=== PATIENT | male | born 1955 | race Caucasian/White ===

== ENCOUNTER 2023-08-16 14:18 | Outpatient (RCR) | payer MEDICARE, OTHER, SELFPAY ==
[2023-08-02] MEDS: [UNRECOGNIZED DRUG - OTHER] 100 MG IV (14:48)
[2023-08-02 15:03] VITALS: BP 188/83
[2023-08-02 15:30] LABS: % Basophils 0.4 % (0-2); % Eosinophils 0.5 % (0-6); % Immature Granulocytes 1.3 % (0-0.5); % Lymphocytes 10.2 % (20.5-51.1); % Monocytes 8.4 % (1.7-9.3); % Neutrophils 79.2 % (42.2-75.2); Absolute Eosinophils 0.1 10^3/uL (0-0.7); Absolute Immature Granulocytes 0.1 10^3/uL (0-0.05); Absolute Monocytes 0.8 10^3/uL (0.1-0.6); Absolute Neutrophils 7.3 10^3/uL (1.4-6.5); Hematocrit 39.3 % (39.0-52.0); Hemoglobin 13.8 g/dL (13.0-18.0); Mean Corp Hgb Conc. 35.1 g/dL (33.0-37.0); Mean Corpuscular Hgb 31.3 pg (27.0-31.0); Mean Corpuscular Volume 89.1 fL (80.0-94.0); Mean Platelet Volume 10.1 fL (7.4-10.4); Platelet Count 150 10^3/uL (130-400); Red Blood Cell Count 4.41 10^6/uL (4.70-6.10); White Blood Cell Count 9.3 10^3/uL (4.8-10.8)
[2023-08-02 16:23] LABS: Blood Urea Nitrogen 23 mg/dl (9-20); Calcium 10.8 mg/dl (8.4-10.2); Carbon Dioxide 23 mmol/L (22-30); Chloride 103 mmol/L (98-107); Glucose 166 mg/dl (70-99); Potassium 4.4 mmol/L (3.5-5.1); Sodium 135 mmol/L (135-145); eGFR > 60.00
[2023-08-16] MEDS: [UNRECOGNIZED DRUG - OTHER] 100 MG IV (14:59)
[2023-08-16 15:08] LABS: % Basophils 0.8 % (0-2); % Eosinophils 1.8 % (0-6); % Immature Granulocytes 0.9 % (0-0.5); % Lymphocytes 14.8 % (20.5-51.1); % Monocytes 10.8 % (1.7-9.3); % Neutrophils 70.9 % (42.2-75.2); Absolute Basophils 0.1 10^3/uL (0-0.2); Absolute Eosinophils 0.1 10^3/uL (0-0.7); Absolute Immature Granulocytes 0.1 10^3/uL (0-0.05); Absolute Lymphocytes 1.2 10^3/uL (1.2-3.4); Absolute Monocytes 0.8 10^3/uL (0.1-0.6); Absolute Neutrophils 5.5 10^3/uL (1.4-6.5); Hematocrit 40.6 % (39.0-52.0); Hemoglobin 14.4 g/dL (13.0-18.0); Mean Corp Hgb Conc. 35.5 g/dL (33.0-37.0); Mean Corpuscular Hgb 31.2 pg (27.0-31.0); Mean Corpuscular Volume 87.9 fL (80.0-94.0); Mean Platelet Volume 9.8 fL (7.4-10.4); Platelet Count 154 10^3/uL (130-400); Red Blood Cell Count 4.62 10^6/uL (4.70-6.10); Red Cell Dist. Width 12.9 % (11.5-14.5); White Blood Cell Count 7.8 10^3/uL (4.8-10.8)
[2023-08-16 15:09] VITALS: BP 123/70
[2023-08-16 16:03] LABS: Blood Urea Nitrogen 18 mg/dl (9-20); Carbon Dioxide 24 mmol/L (22-30); Chloride 101 mmol/L (98-107); Glucose 174 mg/dl (70-99); Potassium 4.2 mmol/L (3.5-5.1); Sodium 134 mmol/L (135-145); eGFR > 60.00
== END 2023-08-17 08:23 | disposition home or self-care (01) ==
LOC: OID 14:18
PROVIDERS: ATTENDING PHYSICIAN Internal Medicine Nephrology; FAMILY PHYSICIAN Internal Medicine
DX: Z94.0 Kidney transplant status (principal)
CPT/HCPCS: 36415; 80048; 85025; 96365; J0485

== ENCOUNTER 2023-08-24 22:03 | Observation (INO) | payer MEDICARE, OTHER, SELFPAY ==
[2023-08-24] VITALS (8 sets, daily range): BP systolic 106–178; BP diastolic 62–96
[2023-08-24 14:44] LABS: Glucose - Point of Care 198 mg/dl (70-99)
[2023-08-24 14:55] LABS: % Basophils 0.6 % (0-2); % Eosinophils 0.8 % (0-6); % Immature Granulocytes 1.4 % (0-0.5); % Monocytes 7.3 % (1.7-9.3); % Neutrophils 77.9 % (42.2-75.2); Absolute Basophils 0.1 10^3/uL (0-0.2); Absolute Eosinophils 0.1 10^3/uL (0-0.7); Absolute Immature Granulocytes 0.1 10^3/uL (0-0.05); Absolute Lymphocytes 1.2 10^3/uL (1.2-3.4); Absolute Monocytes 0.7 10^3/uL (0.1-0.6); Absolute Neutrophils 7.8 10^3/uL (1.4-6.5); Hematocrit 43.5 % (39.0-52.0); Hemoglobin 15.8 g/dL (13.0-18.0); Mean Corp Hgb Conc. 36.3 g/dL (33.0-37.0); Mean Corpuscular Hgb 31.3 pg (27.0-31.0); Mean Corpuscular Volume 86.3 fL (80.0-94.0); Mean Platelet Volume 9.6 fL (7.4-10.4); Nucleated Red Blood Cells % 0 % (-); Platelet Count 178 10^3/uL (130-400); Red Blood Cell Count 5.04 10^6/uL (4.70-6.10); Red Cell Dist. Width 13.2 % (11.5-14.5); White Blood Cell Count 10.1 10^3/uL (4.8-10.8)
[2023-08-24 15:07] LABS: ALT (SGPT) 67 U/L (0-50); AST (SGOT) 60 U/L (17-59); Albumin 4.1 g/dl (3.5-5.0); Alkaline Phosphatase 153 U/L (38-126); Blood Urea Nitrogen 16 mg/dl (9-20); Calcium 11.1 mg/dl (8.4-10.2); Carbon Dioxide 25 mmol/L (22-30); Chloride 102 mmol/L (98-107); Glucose 206 mg/dl (70-99); Potassium 4.6 mmol/L (3.5-5.1); Sodium 132 mmol/L (135-145); Total Bilirubin 0.9 mg/dl (0.2-1.3); Total Protein 6.6 g/dl (6.3-8.2); eGFR > 60.00
--- NOTE | 2023-08-24 15:28 | ED.GENMED ---
History of Present Illness
General
Chief Complaint: Weakness
Source: patient
Exam Limitations: none
Time Seen by Provider: 08/24/23 15:08
Nursing documentation reviewed up to this point in time: agreed with
Travel History
Have you had any contact with someone who has COVID-19?: No
Do you have any symptoms of coronavirus? Fever > 100 degrees, chills, cough, shortness of breath, sore throat, loss of taste or smell, muscle aches, or headache?: No
History of Present Illness
History of Present Illness:
68-year-old male with past medical history of cerebral amyloid angiopathy, renal failure with renal transplant 2021, CVA 2019, CAD aortic stenosis status post TAVR, seizure disorder hypertension diabetes hyperlipidemia A-fib on chronic
immunosuppressants presents to the ER for evaluation of weakness. reports for the past several days patient has been very weak having difficulty walking despite using his walker. He is hunched over and she reports it seems like his legs
cannot hold him up.
Patient was recently here at June 08 and transferred to [facility] where his renal transplant was performed June 15. Patient tacrolimus was discontinued and patient was started on CellCept at that time.
reports patient has not had any fever but she has noticed that his urine has been very foul-smelling recently.
She reports patient seems to be eating and drinking well.
Past History
Past History
ED Past Medical History: CHF, CVA (Left upper cut loss), HTN, Hypercholesterolemia, NIDDM, Renal failure (Hemodialysis), Seizures and Other (Obstructive sleep apnea, MS, Diverticulitis, Blind ( blurred vision, sees shadows), )
ED Past Surgical History: Cardiac (TAVR- February 2020), Cholecystectomy and Urological (Renal transplant)
Patient has exhibited threatening behavior?: No
PSI?: No
Social History
Tobacco: Former smoker
Alcohol: Occasional
Personal:
Living: with family
Review of Systems
Review of Systems
Allergies reviewed?: Yes
Other source history: family
All Other Systems: ROS reviewed and negative except as documented in HPI and ROS
Constitutional: Reports other (weakness )
EENT: Reports no symptoms
Respiratory: Reports no symptoms; Denies cough or trouble breathing
Cardiac: Reports no symptoms; Denies chest pain, diaphoresis, palpitations or syncope
ABD/GI: Reports no symptoms
: Reports other (foul smelling urine as per )
Musculoskeletal: Reports no symptoms
Skin: Reports no symptoms
Neurological: Reports no symptoms
Psychiatric: Reports no symptoms
Phy Exam
General Physical Exam
General Presentation: no apparent distress
General age: appears stated age
General Skin: warm and dry
General Habitus: elderly
General Mental: alert
General Hydration: dry mucous membranes
Neurological Exam
Neurological Exam: alert, no motor deficits, no sensory deficits and speech normal
NIH Stroke Score
Level of Consciousness: 0 - Alert
LOC questions: 0-Answers both correctly
LOC Commands: 0-Performs both correctly
Best Gaze: 0-Normal
Visual Ramos: 0=Normal, no visual loss
Facial palsy: 0=Normal, symmetrical
Motor - Right Arm: 0=No drift 10 seconds
Motor - Left Arm: 0=No drift 10 seconds
Motor - Right Le-No drift 5 seconds
Motor - Left Le-No drift 5 seconds
Limb Ataxia: 0-Absent
Sensation: 0-Normal
Best Language: 0-No aphasia
Dysarthria: 0-Normal
Extinction and Inattention: 0-No abnormality
Total Score:: 0
[place] Coma Scale
Eye Opening: Spontaneous
Verbal Response: Oriented
Motor Response: Obeys Commands
GCS Total Score: 15
Musculoskeletal Exam
Musculoskeletal Exam: full ROM
Skin Exam
Skin Exam: normal color and warm/dry
Psychiatric Exam
Psychiatric Exam: normal mood/affect
Course
Orders/Labs/Results
Orders:
Orders
08/24/23 14:42
Comprehensive Metabolic Panel Urgent
08/24/23 14:43
Complete Blood Count/With Diff Urgent
08/24/23 15:32
0.9% Sodium Chloride 250 ml [Nss] 250 ml IV BOLUS
08/24/23 15:33
COVID-19 Antigen Urgent
Source: Nasal Swab
Influenza A+B Rapid Molecular Urgent
ЕЛЕНА Source: Nasal Swab
Specimen Description:
08/24/23 17:10
UA Reflex to Culture [Urinalysis Reflex To Culture] Urgent
Date Specimen was Collected: 08/24/23
Time Specimen was Collected: 16:14
Urine Microscopic Reflex Cult Urgent
08/24/23 18:45
CT Head W/o Iv Contrast Urgent
Comment:
Reason For Exam: weakness, unable to walk
08/24/23 19:54
Electrocardiogram (*1) Stat
Reason for Study: Other
Other Reason for Exam: chest pain
EKG- Treatment ONCE
08/24/23 21:41
Admit/Transfer Patient As Directed
Co-Sign Provider:
Level of Care: Observation services
Assign to:: Telemetry
Physician / Group: Arturo
Diagnosis: RLE Weakness
Reason for Telemetry: CVA/TIA
Date to Stop Telemetry: 08/27/23
Time to Stop Telemetry: 11:00
08/24/23 21:42
Code Status As Directed
Resuscitation Status: Full Code
08/25/23 00:07
Acetaminophen [Tylenol] 650 mg PO Q4HPRN PRN
Atorvastatin [Lipitor] 40 mg PO HS
Dextrose 50%-Water [Dextrose 50% Syringe] 12.5 grams IV [id number] PRN
Glucagon [GlucaGen] 1 mg IM PRN PRN
NIFEdipine EXTENDED RELEASE [Procardia Xl (Extended Release)] 60 mg PO Q12H
Spironolactone [Aldactone Suspension] 50 mg PO Q12H
Tamsulosin [Flomax] 0.4 mg PO HS
clobazam 20 mg PO HS
cycloSPORINE [SandIMMUNE] 75 mg PO Q12H
insulin glargine [Lantus Solostar U-100 Insulin] 20 unit SC HS
quetiapine 50 mg PO HS
08/25/23 00:07
TSH Reflex To Free T4 Routine
Activity As Directed
Activity Level: Ambulate
With Assistance
Bedside Glucose Monitoring As Directed
Frequency: AC&HS
Comment: Change to q6h if pt on TPN, tube feeding or not eating
Bladder Scan As Directed
Follow Bladder Retention/Intermittent Cath Algorithm?: Yes
PRN if no void in __ hours: 6
Frequency: Per Retention Algorithm
If Bladder Scan Result >: 400
then:: Straight cath
EKG with chest pain [ECG as needed] As Directed
ECG as needed for:: Chest Pain
I/O [Intake/ Output] As Directed
Frequency: Per unit guidelines
Neurological Checks As Directed
Frequency: q4h
Orthostatic Vital Signs As Directed
Orthostatic VS Frequency: BID
Pneumatic Compression Sleeves As Directed
Type: Knee high
Straight Cath As Directed
Frequency: Per Retention Algorithm
Additional Instructions: straight cath as needed per acute urinary retention algorithm for 24 hrs
Additional Instructions: for bladder scan greater than 400 mL
Vital Signs As Directed
Frequency: Per unit guidelines
Weight As Directed
Frequency: Daily
Oxygen Therapy [O2 Therapy] [RESP] Routine
Titrate/Wean O2 to maintain O2 sat greater than (%): 94
Ot Eval And Treat Routine
PT Consult [Pt Eval And Treat] Routine
Activity Level: Ambulate
With Assistance
DX Deep Vein Thrombosis Video Routine
08/25/23 Breakfast
2000 calorie (17 carb) Diabetic
Basic Metabolic Panel IN AM
Complete Blood Count/No Diff IN AM
Glycohemoglobin (HgbA1c) IN AM
LFT [Hrjow-Bcna-Pptmgnm] IN AM
08/25/23 07:30
Insulin Aspart Corrective Low [Novolog Flexpen-Low Resistance] See Protocol SC AC
insulin lispro 8 unit SC AC
08/25/23 08:00
Aspirin Low Dose EC [Aspir Low (Enteric Coated)] 81 mg PO DAILY
Carvedilol [Coreg] 12.5 mg PO BID
Escitalopram Oxalate [Lexapro] 15 mg PO DAILY
FOLic ACID [Folvite] 1 mg PO DAILY
Famotidine [Pepcid] 20 mg PO DAILY
Finasteride [Proscar] 5 mg PO DAILY
Prednisone [Deltasone] 5 mg PO DAILY
08/25/23 12:00
Quetiapine Fumarate [Seroquel] 25 mg PO NOON
08/27/23 11:00
DC Protocol for Telemetry ONCE
Abnormal Lab Results
08/24/23 08/24/23 08/24/23
14:42 14:43 14:44
MCH 31.3 H pg
(27.0-31.0)
Abs Immat Gran (auto) 0.1 H 10^3/uL
(0-0.05)
Absolute Neuts (auto) 7.8 H 10^3/uL
(1.4-6.5)
Absolute Monos (auto) 0.7 H 10^3/uL
(0.1-0.6)
Immature Gran % 1.4 H %
(0-0.5)
Neutrophils % 77.9 H %
(42.2-75.2)
Lymphocytes % 12.0 L %
(20.5-51.1)
Sodium 132 L mmol/L
(135-145)
Glucose 206 H mg/dl
(70-99)
Calcium 11.1 H mg/dl
(8.4-10.2)
AST 60 H U/L
(17-59)
ALT 67 H U/L
(0-50)
Alkaline Phosphatase 153 H U/L
(38-126)
Ur Occult Blood Reflex
Urine Albumin (Reflex)
POC Glucose 198 H mg/dl
(70-99)
08/24/23
17:10
MCH
Abs Immat Gran (auto)
Absolute Neuts (auto)
Absolute Monos (auto)
Immature Gran %
Neutrophils %
Lymphocytes %
Sodium
Glucose
Calcium
AST
ALT
Alkaline Phosphatase
Ur Occult Blood Reflex Trace A
(Negative)
Urine Albumin (Reflex) 2+ A
(Neg - Trace)
POC Glucose
08/24/23 14:43
08/24/23 14:42
Vital Signs
Initial and Last Documented VS:
Initial Vital Signs
Temp Pulse Resp BP Pulse Ox
97.8 F 55 18 106/62 100
08/24/23 14:28 08/24/23 14:28 08/24/23 14:28 08/24/23 14:28 08/24/23 14:28
Last Documented Vital Signs
Temp Pulse Resp BP Pulse Ox
98.1 F 58 18 173/80 98
08/25/23 00:07 08/25/23 00:07 08/25/23 00:07 08/25/23 00:07 08/25/23 00:07
Light Rail Operator consulted with Physician
Light Rail Operator consulted with physician?: Yes
Name of Physician Consulted: [place]
MDM/Problems Addressed
Differential Diagnosis Includes:
Not limited to infection dehydration weakness related to chronic cerebral amyloid angiopathy
MDM/Problems Addressed:
Patient is a 68-year-old male with significant history as documented above presents for worsening weakness. reports patient can barely walk with a walker. Patient notes to feeling generally weak no neurodeficits on exam. reports urine
was very foul-smelling however no obvious UTI. Patient is afebrile normal white count, glucose mildly elevated LFTs minimally elevated patient sent by ED physician CT head ordered and negative, will require admission for worsening weakness though
no focal neurodeficits
Chronic conditions affecting care:
For cerebral amyloid angiopathy renal transplant, TAVR
*Radiology
Radiology exam reviewed: radiology read reviewed
*Pulse Oximetry
Patient hypoxic: no
*Critical Care Note
Total Time (30-74mins, 75-104mins- exclusive of procedures): Not Applicable
ED Attending Note
-
Portions of this chart may have been created with voice recognition software.� Occasional wrong word or��sound alike� substitutions may have occurred due to the inherent limitations of voice recognition software.
Discharge Plan
Departure
Patient Disposition: Admit
Date of Disposition: 08/24/23
Time of Disposition: 19:55
Admit to: Med/Surg
Admit to doctor: hositalist
Presentation/result/management discussed w/ accepting MD/DO: Hospitalist
Patient with high blood pressure during this ER visit?: Yes
Condition: Fair
Covid-19: Not Applicable
Discharge Problem:
Weakness, generalized weakness
Interventions
Interventions:
*Risk Screen - Suicide Last Done: 08/24/23 14:31
*General Assessment Last Done: 08/24/23 14:31
*Neglect/Abuse Screening Last Done: 08/24/23 14:31
ED- Fall Risk Assessment Last Done: 08/25/23 00:09
*ED COVID-19 Vaccine History Last Done: 08/24/23 14:32
*Nursing Disposition Last Done: 08/25/23 00:09
ED- Neurological Assessment Last Done: 08/24/23 15:30
Discharge Date and Time
Discharge Date/Time: 08/25/23 00:09
[2023-08-24 16:01] LABS: COVID-19 Antigen Negative (Negative)
[2023-08-24] MEDS: NSS 250 IV (16:18)
[2023-08-24 17:22] LABS: Urine Albumin 2+ (Neg - Trace); Urine Bilirubin Negative (Negative); Urine Character Clear (Clear); Urine Color Yellow; Urine Glucose Negative (Negative); Urine Ketone Negative (Negative); Urine Leukocyte Negative (Negative); Urine Nitrite Negative (Negative); Urine Occult Blood Trace (Negative); Urine Specific Gravity 1.015 (<1.030); Urine Urobilinogen Negative (Neg - 1+)
[2023-08-24 17:28] LABS: Urine Red Blood Cell 0-2 /HPF (0-2); Urine Squamous Cell 0-2 /LPF (Few); Urine White Cell 0-2 /HPF (0-5)
--- NOTE | 2023-08-24 21:46 | HPS.HSE ---
Family Physician
-
Family Physician: PHYSICIAN PRIVATE
Chief Complaint
-
Weakness
History of Present Illness
Patient is a 68y M with PMH significant for ESRD s/p renal transplant, multiple prior CVAs, vascular dementia, seizure disorder and DM-II who presents to ED complaining of right leg weakness. History obtained from patient and his at the
bedside. Patient is s/p recent prolonged hospitalization lasting about 4 months according to his . This was reportedly for weakness, mood disorder / agitation, etc. He was discharged to SNF / rehab and only returned home about 3 weeks ago.
One week ago, patient ws walking when his R leg 'stopped doing what I wanted'. He had a fall onto his L side at that time. He and deny any significant injury, head impact, LOC, etc.
Yesterday he had PT at home and did very well with no apparent issues / limitations. This AM, he again noted weakness or clumsiness or 'stiffness' of the R leg. He had difficulty walking as the R foot felt 'stuck'.
Patient presented to the ED for further evaluation and treatment.
He has no headache. No new vision changes (has chronic visual field deficits from prior CVA). No RUE symptoms including weakness or ataxia.
Patient is in the process of being evaluated for possible component of Parkinson's as an outpatient.
Medical History
Past Medical History
Past Medical History: Reports Other
Additional Past Medical History:
ASCVD / CVA (multiple)
Aortic Stenosis
CKD s/p Renal Transplant
DM-II
Hypertension
Seizure Disorder
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
Thrombocytopenia
Intracranial Hemorrhage (November 2022)
BPH
Primary Hyperparathyroidism
Past Surgical History: Reports Other
Additional Past Surgical History:
RUE AVF
Cholecystectomy
TAVR
Renal Transplant (December 2021)
Social History
Tobacco: Former Smoker (Quit smoking 20 years ago.)
Alcohol: None
Drug: None
Personal:
Living: With Family
Family History
Family History: Diabetes
Allergies / Home Medications
Allergies reflects when Allergies were last updated in [facility].
Home Medications with original date entered in [facility]
Allergy/Medication List:
Allergies
Allergy/AdvReac Type Severity Reaction Status Date / Time
heparin Allergy Unknown Verified 08/24/23 14:28
levetiracetam [From Kera] Allergy change in Verified 08/24/23 14:28
mental
status.
Home Medications
tamsulosin 0.4 mg capsule 0.4 mg PO HS Urinary Issue 06/22/21
atorvastatin 40 mg tablet (Lipitor) 40 mg PO HS High cholesterol 06/23/21
carvedilol 12.5 mg tablet 12.5 mg PO BID Heart Disease/Condition 12/30/22
famotidine 20 mg tablet 20 mg PO DAILY Gastrointestinal Issue 12/30/22
finasteride 5 mg tablet 5 mg PO DAILY Urinary Issue 12/30/22
prednisone 5 mg tablet 5 mg PO DAILY Anti-Inflammatory 12/30/22
aspirin 81 mg tablet,delayed release 81 mg PO DAILY #0 tabs 01/05/23
insulin glargine 100 unit/mL (3 mL) subcutaneous pen (Lantus Solostar U-100 Insulin) 20 unit SC HS 06/08/23
insulin lispro 100 unit/mL subcutaneous pen 8 unit SC AC 06/08/23
quetiapine 25 mg tablet (Seroquel) 25 mg PO NOON 06/08/23
benzonatate 100 mg capsule 100 mg PO Q8H PRN cough 08/24/23
clobazam 20 mg tablet 20 mg PO HS 08/24/23
cyclosporine modified 25 mg capsule 75 mg PO Q12H 08/24/23
escitalopram oxalate 10 mg tablet 10 mg PO DAILY 08/24/23
escitalopram oxalate 5 mg tablet 5 mg PO DAILY 08/24/23
folic acid 1 mg tablet 1 mg PO DAILY 08/24/23
nifedipine 60 mg tablet,extended release 60 mg PO Q12H 08/24/23
quetiapine 50 mg tablet 50 mg PO HS 08/24/23
spironolactone 50 mg tablet (Aldactone) 50 mg PO Q12H 08/24/23
Review of Systems
-
History Source: Patient
A 12 point ROS was completed and negative except as noted: Yes
Constitutional: Reports Fatigue; Denies Fever or Chills
EENT: Denies Sore Throat
Respiratory: Denies Cough or Trouble Breathing
Cardiac: Denies Chest Pain or Palpitations
Abdomen/GI: Denies Abdominal Pain, Nausea, Vomiting or Diarrhea
: Denies Dysuria or Frequency
Musculoskeletal: Denies Joint Pain or Edema
Neurological: Reports Weakness; Denies Dizzy, Headache or Numbness
Psych: Reports Anxiety, Dementia and Other ('Sundowning'); Denies Depression
Physical Exam
Vital Signs
Vital Signs
Temp Pulse Resp BP Pulse Ox
97.9 F 56 14 153/96 99
08/24/23 17:12 08/24/23 21:15 08/24/23 21:15 08/24/23 21:00 08/24/23 21:15
Physical Exam
General: Other (68y M with flat affect in no acute distress.)
HEENT: Moist mucous membranes and Other (Dysconjugate gaze.)
Respiratory: Clear; No Wheezes, Rales or Rhonchi
Cardiac: S1/S2, Regular Rhythm and Murmur (III/ ALTAGRACIA)
GI: Soft, Non Tender, Non Distended and Normal Bowel Sounds
Musculoskeletal: No Clubbing, No Cyanosis and No Edema
Neuro: Awake, Alert and Other (Gaze deviation / visual field deficit - chronic. No focal weakness or ataxia at present.)
Laboratory Results
-
08/24/23 14:43
08/24/23 14:42
Laboratory Results
Total Bilirubin 0.9 mg/dl (0.2-1.3) 08/24/23 14:42
AST 60 U/L (17-59) H 08/24/23 14:42
ALT 67 U/L (0-50) H 08/24/23 14:42
Alkaline Phosphatase 153 U/L (38-126) H 08/24/23 14:42
Impression/Plan
-
A/P: Patient is a 68y M with PMH significant for ASCVD, multiple prior CVA, dementia and renal transplant status who presents to ED for evaluation of RLE weakness.
RLE Weakness
- Observe overnight for further evaluation and treatment.
- Review of records shows multiple prior similar instances with weakness in one or both legs.
- and patient give interesting description of feeling 'frozen' or 'stuck'.
- Outpatient Parkinson's work-up has been initiated.
- Monitor overnight for any new changes.
- PT / OT evaluations in the AM.
- Neuro eval for any additional recommendations.
- CT imaging in the ED with chronic changes, but no acute abnormality.
ASCVD
- Doubt new / acute CVA given history or prior symptoms and no current RLE weakness or ataxia.
- Suspect more chronic / atypical weakness due to his multiple other issues, prior strokes, +/- Parkinsonism, etc.
- Continue current med regimen.
- Monitor for any changes in neurologic status.
DM-II
- Stable. Continue basal : bolus insulin.
- Follow glucose and cover with SSI as needed.
- Update A1C.
Vascular Dementia with Behavioral Disturbance
- Stable. Continue current med regimen including quetiapine.
- Follow for any changes in mood.
Seizure Disorder
- No recent seizure activity - last in 03/2023 per .
- Continue clobazam.
Renal Transplant Status
- Stable. Renal function is normal / at baseline.
- Continue current med regimen and follow for changes.
Benign Hypertension
- Stable. Continue multidrug regimen and adjust as needed for adequate control.
DVT Prophylaxis: SCDs
Code Status: Full
[2023-08-25] VITALS (8 sets, daily range): BP systolic 104–173; BP diastolic 63–88; PULSE 58–69; O2SAT 98–100; BMI 23.0
[2023-08-25 00:23] LABS: Glucose - Point of Care 277 mg/dl (70-99)
[2023-08-25] MEDS: FLOMAX 0.400000000000000022 MG PO (01:04)
[2023-08-25] MEDS: SEROQUEL 50 MG PO (01:04)
[2023-08-25] MEDS: LIPITOR 40 MG PO (01:05)
[2023-08-25] MEDS: PROCARDIA XL (EXTENDED RELEASE) 60 MG PO ×2 (01:07→10:31)
[2023-08-25] MEDS: SandIMMUNE 75 MG PO ×2 (01:20→10:30)
[2023-08-25] MEDS: ALDACTONE 50 MG PO ×2 (01:20→10:30)
[2023-08-25] MEDS: ONFI 20 MG PO (01:20)
[2023-08-25] MEDS: LANTUS 0.200000000000000011 UNITS SC (01:21)
[2023-08-25 07:36] LABS: Hematocrit 40.5 % (39.0-52.0); Hemoglobin 14.3 g/dL (13.0-18.0); Mean Corp Hgb Conc. 35.3 g/dL (33.0-37.0); Mean Corpuscular Volume 87.7 fL (80.0-94.0); Mean Platelet Volume 9.9 fL (7.4-10.4); Platelet Count 157 10^3/uL (130-400); Red Blood Cell Count 4.62 10^6/uL (4.70-6.10); White Blood Cell Count 7.7 10^3/uL (4.8-10.8)
[2023-08-25 07:55] LABS: Glucose - Point of Care 177 mg/dl (70-99)
[2023-08-25] MEDS: PROSCAR 5 MG PO (08:01)
[2023-08-25] MEDS: ASPIR LOW (ENTERIC COATED) 81 MG PO (08:01)
[2023-08-25] MEDS: LEXAPRO 15 MG PO (08:02)
[2023-08-25] MEDS: COREG 12.5 MG PO (08:02)
[2023-08-25] MEDS: DELTASONE 5 MG PO (08:02)
[2023-08-25] MEDS: FOLVITE 1 MG PO (08:02)
[2023-08-25] MEDS: PEPCID 20 MG PO (08:03)
[2023-08-25] MEDS: NOVOLOG FLEXPEN 8 UNITS SC ×3 (08:03→17:17)
[2023-08-25] MEDS: NOVOLOG FLEXPEN-LOW RESISTANCE 1 UNITS SC ×2 (08:03→17:17)
[2023-08-25 08:17] LABS: ALT (SGPT) 64 U/L (0-50); AST (SGOT) 50 U/L (17-59); Albumin 3.4 g/dl (3.5-5.0); Alkaline Phosphatase 152 U/L (38-126); Blood Urea Nitrogen 19 mg/dl (9-20); Calcium 10.6 mg/dl (8.4-10.2); Carbon Dioxide 26 mmol/L (22-30); Chloride 105 mmol/L (98-107); Direct Bilirubin 0.6 mg/dl (0.0-0.4); Estimated Creatinine Clearance 98 ml/min; Glucose 212 mg/dl (70-99); Potassium 4.1 mmol/L (3.5-5.1); Sodium 131 mmol/L (135-145); Total Bilirubin 0.6 mg/dl (0.2-1.3); Total Protein 5.7 g/dl (6.3-8.2); eGFR > 60.00
[2023-08-25 08:33] LABS: TSH Reflex To Free T4 1.28 uIU/ml (0.47-4.68)
[2023-08-25 11:49] LABS: Glucose - Point of Care 147 mg/dl (70-99)
[2023-08-25] MEDS: NOVOLOG FLEXPEN-LOW RESISTANCE SC (12:00)
[2023-08-25] MEDS: SEROQUEL 25 MG PO (12:26)
--- NOTE | 2023-08-25 12:53 | CON.NEURO4 ---
Consultation - Neurology 4
-
CONSULTING PHYSICIAN: Ralf Parish
REFERRING PHYSICIAN: Hospitalist
DICTATED BY: Ralf Parish
DATE/TIME OF REQUEST: 08/25/23
DATE/TIME OF CONSULTATION: 08/25/23
Reason for Consultation: Weakness, fall
History of Present Illness:
Patient is a 68-year-old male with a past no history of ischemic stroke, epilepsy who presents to hospital with fall and weakness of the legs more so on the right. Patient reports that he thought that this was a stopping of his right leg function
and says that this seems to resolved at this point. He does endorse chronic ambulatory dysfunction sometimes with a feeling of pausing with his gait and hesitated. He denies any tremor. Denies any back pain or change in urinary or bowel function
including incontinence or urinary retention. With the fall he do not have any loss of consciousness or head injury and denies any new pains at this time. He had had a recent discharge after a prolonged hospitalization of around 3 to 4 months,
returned home around 3 to 4 weeks ago.
Past Medical History: Ischemic stroke, vascular dementia with behavioral disturbance, renal transplant, diabetes mellitus, epilepsy
Surgical History: RUE AV fistula, cholecystectomy, renal transplant, TAVR
Family History: Reviewed and non-contributory
Social History: Not working, lives with his , former smoking quitting approximately 20 years ago, no alcohol use
Allergies: Heparin, Levetiracetam
Home Medications:
Review of Symptoms:
Patient denies any fever, headache, chest pain, shortness of breath, GI or symptoms.
�Per the HPI.�All systems are reviewed negative except above.
�- Remove any of these problems that patient may have complained about in the HPI.
�- If patient is unresponsive, intubated or demented, say 'Per the HPI. I am unable to obtain a complete review of systems�because of patient's inability to provide history.'
Physical Exam:
The patient is afebrile, heart sounds S1 and S2 are (regular / irregular), and chest is clear to auscultation bilaterally.
- If not clear, describe.
Neurologic Examination:
Patient awake and alert, limited historian, memory recall to recent events is poor, not much detail to his story, usually speaks in short phrases, comprehension is intact, oriented to person, place, month, year. On cranial nerve assessment,
pupils are 3 mm bilateral, round and reactive to light and accommodation. Left sided homonymous hemianopia. Shoulder abduction hip flexion ankle dorsiflexion and plantarflexion 5/5 bilaterally Extraocular movements are intact. Facial sensations are
intact and bilaterally symmetrical, there is no facial asymmetry. Hearing is intact bilaterally to normal conversation volume. Tongue palate and uvula are midline. Sternocleidomastoid strengths are full bilaterally. Motor strengths are 5/5
bilateral upper and lower extremities on medical research [place] scale. There is no drift or involuntary movement noted. Deep tendon reflexes are 2+ bilateral upper and lower extremities and Babinski is absent bilaterally. Sensations of pain,
touch, temperature and vibration are intact and bilaterally symmetrical. There was no extinction noted on double simultaneous stimulation. Coordination is intact by finger to nose bilaterally.
Neuro Imaging: Previous brain MRI February 2023 with moderate to severe chronic microvascular white matter ischemic disease, chronic right occipital and left cerebellar infarction and chronic lacunar infarcts
Impressions
1. Weakness and ambulatory dysfunction, these symptoms and the fall I feel are most likely due to chronic issues. History of multiple strokes is likely contributing to gait issues and can produce a vascular parkinsonism. No signs on exam of a
new focal deficit concerning for a new ischemic stroke.
2. Epilepsy with unclear seizure types, controlled, without status epilepticus
3. Vascular dementia with behavioral disturbance
4.
Recommendations:
1. Would focus on physical therapy and rebuilding strength and continue to work on gait issues
2. Not going to recommend starting any carbidopa levodopa
3. Not going to recommend further neurologic imaging
4. Continue his home antiseizure medication regimen of Clobazam 20 mg qhs
5. Avoid new sedating medications
Will follow as needed call with questions and concerns
Discussed patient care with: Patient
--- NOTE | 2023-08-25 13:57 | W.PN.HOSP.TC ---
Addendum entered and electronically signed by Clement Lux MD 08/26/23 17:12:
[id number]
Original Note:
Today's Communication/Plan
-
No further recommendations of starting any new medications or imaging at this time
Continue antiseizure medications
Follow-up neurology workup outpatient
Follow PCP
PT or SNF depending on family preference
Assessment / Plan
Assessment / Plan
Physical Exam
General: Other (68y M with flat affect in no acute distress.)
HEENT: Moist mucous membranes and Other (Dysconjugate gaze.)
Respiratory: Clear; No Wheezes, Rales or Rhonchi
Cardiac: S1/S2, Regular Rhythm and Murmur (III/ ALTAGRACIA)
GI: Soft, Non Tender, Non Distended and Normal Bowel Sounds
Musculoskeletal: No Clubbing, No Cyanosis and No Edema
Neuro: Awake, Alert and Other (Gaze deviation / visual field deficit - chronic.� No focal weakness or ataxia at present.)
A/P:� Patient is a 68y M with PMH significant for ASCVD, multiple prior CVA, dementia and renal transplant status who presents to ED for evaluation of RLE weakness.
RLE Weakness, chronic inappearance
�- Observe overnight for further evaluation and treatment.
�- Review of records shows multiple prior similar instances with weakness in one or both legs.
�- and patient give interesting description of feeling 'frozen' or 'stuck'.
�- Outpatient Parkinson's work-up has been initiated.
�- Monitor overnight for any new changes.
�- PT / OT evaluations in the AM.
�- Neuro eval for any additional recommendations.
�- CT imaging in the ED with chronic changes, but no acute abnormality.
-PT
-Neuro not recommending starting any carbidopa levodopa, further neurological imaging
� Continue antiseizure medication clobazam 20 mg nightly
� Avoid new sedating medications
ASCVD
�- Doubt new / acute CVA given history or prior symptoms and no current RLE weakness or ataxia.
�- Suspect more chronic / atypical weakness due to his multiple other issues, prior strokes, +/- Parkinsonism, etc.
�- Continue current med regimen.
�- Monitor for any changes in neurologic status.
DM-II
�- Stable.� Continue basal : bolus insulin.
�- Follow glucose and cover with SSI as needed.
Vascular Dementia with Behavioral Disturbance
�- Stable.� Continue current med regimen including quetiapine.
�- Follow for any changes in mood.
Seizure Disorder
�- No recent seizure activity - last in 03/2023 per .
�- Continue clobazam.
Renal Transplant Status
�- Stable.� Renal function is normal / at baseline.
�- Continue current med regimen and follow for changes.
Benign Hypertension
�- Stable.� Continue multidrug regimen and adjust as needed for adequate control.
DVT Prophylaxis:� SCDs
Code Status:� Full
More than 30 minutes spent in discharge including
Final examination of the patient
Summarizing hospital stay
Instructions for continuing care to all relevant caregivers
Preparation of discharge records, prescriptions, and referral forms
Total time spent (35 in minutes):
Anticipated Discharge: Today
Subjective/Interval History
-
Date of Service: August 25, 2023
No acute events
Objective Data
-
Labs:
Laboratory Results
08/25/23
06:47
WBC 7.7
Hgb 14.3
Hct 40.5
Plt Count 157
Sodium 131 L
Potassium 4.1
Chloride 105
Carbon Dioxide 26
BUN 19
Creatinine 0.7
Glucose 212 H
Calcium 10.6 H
Total Bilirubin 0.6
AST 50
ALT 64 H
Alkaline Phosphatase 152 H
Vital Signs:
Vital Signs
Temp Pulse Resp BP Pulse Ox
97.8 F 60 18 143/88 98
02/29/24 11:00 08/25/23 11:00 08/25/23 11:00 08/25/23 11:00 08/25/23 11:00
I&O
08/24/23 08/25/23 08/26/23
06:59 06:59 06:59
Intake Total 480 / 480
Balance 480 / 480
Review of Systems
-
History Source: Patient
All other systems: Reviewed and negative
Physical Exam
-
General: Well Developed and No Apparent Distress
HEENT: Normocephalic, Atraumatic and Moist Mucous Membranes
Respiratory: Clear to Auscultation
Cardiac: Regular Rhythm and S1/S2; Negative Murmur, Rub or Gallop
GI: Soft, Nontender, Nondistended and Normal Bowel Sounds; Negative Organomegaly
Rectal: Deferred by Provider
Musculoskeletal: No Clubbing, No Cyanosis, No Edema and Other (RUE AVF )
Skin: Negative Rash
Neuro: Awake, Alert and Nonfocal/Grossly Intact
Data Reviewed
-
CT Scan: Image personally visualized and interpreted and Report Reviewed by me
Labs: Labs Reviewed by me
--- NOTE | 2023-08-25 14:15 | W.DS.TRANS ---
DC Summary - [employer]
-
Discharge Instructions:
Discharge Diagnosis/Procedures Weakness and ambulatory dysfunction,
Diet Low Cholesterol,Low Fat,Restrict fluids to 48 oz
Activity As tolerated
Blood Work bmp in 3-5 days with pcp
Instructions:
Stand-Alone Forms:
Changes to Home Medications: No
Discharge Medications:
DC Medications w/original date entered in [employer]
tamsulosin 0.4 mg capsule 0.4 mg PO HS Urinary Issue 06/22/21
atorvastatin 40 mg tablet (Lipitor) 40 mg PO HS High cholesterol 06/23/21
carvedilol 12.5 mg tablet 12.5 mg PO BID Heart Disease/Condition 12/30/22
famotidine 20 mg tablet 20 mg PO DAILY Gastrointestinal Issue 12/30/22
finasteride 5 mg tablet 5 mg PO DAILY Urinary Issue 12/30/22
prednisone 5 mg tablet 5 mg PO DAILY Anti-Inflammatory 12/30/22
aspirin 81 mg tablet,delayed release 81 mg PO DAILY #0 tabs 01/05/23
insulin glargine 100 unit/mL (3 mL) subcutaneous pen (Lantus Solostar U-100 Insulin) 20 unit SC HS Diabetes 06/08/23
insulin lispro 100 unit/mL subcutaneous pen 8 unit SC AC Diabetes 06/08/23
quetiapine 25 mg tablet (Seroquel) 25 mg PO NOON Mental Health/Anxiety 06/08/23
benzonatate 100 mg capsule 100 mg PO Q8H PRN cough 08/24/23
clobazam 20 mg tablet 20 mg PO HS Seizures 08/24/23
cyclosporine modified 25 mg capsule 75 mg PO Q12H Transplant 08/24/23
escitalopram oxalate 10 mg tablet 10 mg PO DAILY Depression 08/24/23
escitalopram oxalate 5 mg tablet 5 mg PO DAILY Depression 08/24/23
folic acid 1 mg tablet 1 mg PO DAILY Supplement 08/24/23
nifedipine 60 mg tablet,extended release 60 mg PO Q12H Blood Pressure 08/24/23
quetiapine 50 mg tablet 50 mg PO HS Mental Health/Anxiety 08/24/23
spironolactone 50 mg tablet (Aldactone) 50 mg PO Q12H Fluid Retention/Swelling 08/24/23
Home Medication Changes
no
Pending Results: No
--- NOTE | 2023-08-25 15:08 | CM ---
Alert awake forgetful at times patient who lives with his Mday who lives in a split home with 5 step to enter and bed and bathroom on first floor. He is assisted in all activities of daily living.Spoke with she requested call back from
. TT wifes number to call.PT OT reviewed with . Kierra reviewed with and patient . Pt did not want to sign Kierra letter. requested [facility] . Referral placed in care port.
[facility] / [facility] history
Pharmacy [facility]
PCP Luis Boyle
PLAN Home with Meena Ure[facility] /[facility] fax [phone]
[2023-08-25 17:05] LABS: Glucose - Point of Care 162 mg/dl (70-99)
== END 2023-08-25 18:53 | disposition home health service (06) ==
LOC: 4 EAST ACU 22:03
PROVIDERS: Nurse Practitioner; Student in an Organized Health Care Education/Training Program; ADMITTING PHYSICIAN Hospitalist; ATTENDING PHYSICIAN Internal Medicine; CONSULT PHYSICIAN Student in an Organized Health Care Education/Training Program; EMERGENCY PHYSICIAN Emergency Medicine
DX: R53.1 Weakness (principal); R26.2 Difficulty in walking, not elsewhere classified; I25.10 Atherosclerotic heart disease of native coronary artery without angina pectoris; I10 Essential (primary) hypertension; E78.5 Hyperlipidemia, unspecified; F01.518 Vascular dementia, unspecified severity, with other behavioral disturbance; G40.909 Epilepsy, unspecified, not intractable, without status epilepticus; I48.91 Unspecified atrial fibrillation; E11.9 Type 2 diabetes mellitus without complications; G47.33 Obstructive sleep apnea (adult) (pediatric); H53.8 Other visual disturbances; Z95.2 Presence of prosthetic heart valve; Z94.0 Kidney transplant status; Z86.73 Personal history of transient ischemic attack (TIA), and cerebral infarction without residual deficits; Z11.52 Encounter for screening for COVID-19; Z87.891 Personal history of nicotine dependence; Z88.8 Allergy status to other drugs, medicaments and biological substances; Z79.82 Long term (current) use of aspirin; Z79.4 Long term (current) use of insulin; Z79.52 Long term (current) use of systemic steroids
CPT/HCPCS: 70450; 80053; 81003; 81015; 82248; 82962; 83036; 84443; 85025; 85027; 87502; 87811; 93005; 97162; 97166; 99285; G0378

== ENCOUNTER 2023-09-13 13:03 | Outpatient (RCR) | payer MEDICARE, OTHER, SELFPAY ==
[2023-09-13 13:55] VITALS: BP 165/69
[2023-09-13] MEDS: [UNRECOGNIZED DRUG - OTHER] 100 MG IV (14:13)
[2023-09-13 14:31] LABS: % Basophils 0.4 % (0-2); % Eosinophils 0.7 % (0-6); % Immature Granulocytes 1.8 % (0-0.5); % Monocytes 11.3 % (1.7-9.3); % Neutrophils 78.8 % (42.2-75.2); Absolute Eosinophils 0.1 10^3/uL (0-0.7); Absolute Immature Granulocytes 0.2 10^3/uL (0-0.05); Absolute Lymphocytes 0.6 10^3/uL (1.2-3.4); Absolute Monocytes 0.9 10^3/uL (0.1-0.6); Absolute Neutrophils 6.6 10^3/uL (1.4-6.5); Hematocrit 39.6 % (39.0-52.0); Hemoglobin 13.8 g/dL (13.0-18.0); Mean Corp Hgb Conc. 34.8 g/dL (33.0-37.0); Mean Platelet Volume 9.8 fL (7.4-10.4); Platelet Count 131 10^3/uL (130-400); Red Blood Cell Count 4.45 10^6/uL (4.70-6.10); Red Cell Dist. Width 12.9 % (11.5-14.5); White Blood Cell Count 8.3 10^3/uL (4.8-10.8)
[2023-09-13 14:59] LABS: Blood Urea Nitrogen 17 mg/dl (9-20); Calcium 10.6 mg/dl (8.4-10.2); Carbon Dioxide 23 mmol/L (22-30); Chloride 100 mmol/L (98-107); Glucose 360 mg/dl (70-99); Potassium 4.6 mmol/L (3.5-5.1); Sodium 130 mmol/L (135-145); eGFR > 60.00
[2023-09-13 15:05] VITALS: BP 139/71
== END 2023-09-14 09:10 | disposition home or self-care (01) ==
LOC: OID 13:03
PROVIDERS: ATTENDING PHYSICIAN Internal Medicine Nephrology; FAMILY PHYSICIAN Internal Medicine
DX: Z94.0 Kidney transplant status (principal); E11.22 Type 2 diabetes mellitus with diabetic chronic kidney disease; E83.31 Familial hypophosphatemia
CPT/HCPCS: 36415; 80048; 85025; 96365; J0485

== ENCOUNTER 2023-10-11 14:31 | Outpatient (RCR) | payer MEDICARE, OTHER, SELFPAY ==
[2023-10-11 14:30] VITALS: BP 138/76
[2023-10-11 14:50] LABS: % Basophils 0.3 % (0-2); % Eosinophils 1.3 % (0-6); % Immature Granulocytes 1.9 % (0-0.5); % Monocytes 9.3 % (1.7-9.3); % Neutrophils 78.2 % (42.2-75.2); Absolute Eosinophils 0.1 10^3/uL (0-0.7); Absolute Immature Granulocytes 0.2 10^3/uL (0-0.05); Absolute Lymphocytes 0.8 10^3/uL (1.2-3.4); Absolute Monocytes 0.8 10^3/uL (0.1-0.6); Hematocrit 40.4 % (39.0-52.0); Hemoglobin 14.2 g/dL (13.0-18.0); Mean Corp Hgb Conc. 35.1 g/dL (33.0-37.0); Mean Corpuscular Hgb 31.4 pg (27.0-31.0); Mean Corpuscular Volume 89.4 fL (80.0-94.0); Mean Platelet Volume 9.8 fL (7.4-10.4); Platelet Count 174 10^3/uL (130-400); Red Blood Cell Count 4.52 10^6/uL (4.70-6.10); Red Cell Dist. Width 12.7 % (11.5-14.5)
[2023-10-11] MEDS: [UNRECOGNIZED DRUG - OTHER] 100 MG IV (14:57)
[2023-10-11 15:59] LABS: Blood Urea Nitrogen 15 mg/dl (9-20); Calcium 11.2 mg/dl (8.4-10.2); Carbon Dioxide 24 mmol/L (22-30); Chloride 100 mmol/L (98-107); Glucose 213 mg/dl (70-99); Potassium 5.1 mmol/L (3.5-5.1); Sodium 132 mmol/L (135-145); eGFR > 60.00
== END 2023-10-12 11:23 | disposition home or self-care (01) ==
LOC: OID 14:31
PROVIDERS: ATTENDING PHYSICIAN Internal Medicine Nephrology; FAMILY PHYSICIAN Internal Medicine
DX: Z94.0 Kidney transplant status (principal); R41.82 Altered mental status, unspecified
CPT/HCPCS: 36415; 80048; 85025; 96365; J0485

== ENCOUNTER 2023-11-08 13:06 | Outpatient (RCR) | payer MEDICARE, OTHER, SELFPAY ==
[2023-11-08 14:18] VITALS: BP 125/67
[2023-11-08] MEDS: [UNRECOGNIZED DRUG - OTHER] 100 MG IV (14:25)
[2023-11-08 14:29] LABS: % Basophils 0.5 % (0-2); % Eosinophils 1.6 % (0-6); % Immature Granulocytes 1.9 % (0-0.5); % Lymphocytes 11.8 % (20.5-51.1); % Neutrophils 76.2 % (42.2-75.2); Absolute Basophils 0.1 10^3/uL (0-0.2); Absolute Eosinophils 0.2 10^3/uL (0-0.7); Absolute Immature Granulocytes 0.2 10^3/uL (0-0.05); Absolute Lymphocytes 1.2 10^3/uL (1.2-3.4); Absolute Monocytes 0.8 10^3/uL (0.1-0.6); Absolute Neutrophils 7.9 10^3/uL (1.4-6.5); Hematocrit 43.4 % (39.0-52.0); Hemoglobin 15.3 g/dL (13.0-18.0); Mean Corp Hgb Conc. 35.3 g/dL (33.0-37.0); Mean Corpuscular Hgb 31.2 pg (27.0-31.0); Mean Corpuscular Volume 88.6 fL (80.0-94.0); Mean Platelet Volume 10.3 fL (7.4-10.4); Nucleated Red Blood Cells % 0 % (-); Platelet Count 153 10^3/uL (130-400); Red Cell Dist. Width 13.3 % (11.5-14.5); White Blood Cell Count 10.3 10^3/uL (4.8-10.8)
[2023-11-08 14:43] LABS: ALT (SGPT) 88 U/L (0-50); AST (SGOT) 50 U/L (17-59); Albumin 4.1 g/dl (3.5-5.0); Alkaline Phosphatase 153 U/L (38-126); Blood Urea Nitrogen 16 mg/dl (9-20); Calcium 11.3 mg/dl (8.4-10.2); Carbon Dioxide 27 mmol/L (22-30); Chloride 102 mmol/L (98-107); Glucose 236 mg/dl (70-99); Potassium 4.6 mmol/L (3.5-5.1); Sodium 137 mmol/L (135-145); Total Bilirubin 0.5 mg/dl (0.2-1.3); Total Protein 6.7 g/dl (6.3-8.2); eGFR > 60.00
[2023-11-08 15:45] LABS: Urine Albumin 2+ (Neg - Trace); Urine Bilirubin Negative (Negative); Urine Character Clear (Clear); Urine Color Yellow; Urine Glucose Negative (Negative); Urine Ketone Trace (Negative); Urine Leukocyte Negative (Negative); Urine Nitrite Negative (Negative); Urine Occult Blood Negative (Negative); Urine Specific Gravity 1.015 (<1.030); Urine Urobilinogen 1+ (Neg - 1+); Urine pH 6.5 (5.0-9.0)
[2023-11-08 15:58] LABS: Urine Squamous Cell 0-2 /LPF (Few); Urine White Cell 0-2 /HPF (0-5)
[2023-11-08 16:07] LABS: Protein/creatinine Ratio 1.3; Urine Protein 180 mg/dl
[2023-11-08 18:21] LABS: Microalbumin, Random Urine > 57.0 mg/dl (0.6-1.7)
[2023-11-10 18:40] LABS: EBV-EA (D) Ab IgG <5.0 U/mL (0.0-10.9); EBV-VCA IgM Antibodies 31.5 U/mL (0.0-43.9)
[2023-11-11 03:49] LABS: Cyclosporine A Results <20.0 ng/mL
== END 2023-11-09 13:55 | disposition home or self-care (01) ==
LOC: OID 13:06
PROVIDERS: ATTENDING PHYSICIAN Internal Medicine Nephrology; FAMILY PHYSICIAN Internal Medicine
DX: Z94.0 Kidney transplant status (principal)
CPT/HCPCS: 36415; 80053; 80158; 81003; 81015; 82043; 82570; 84156; 85025; 86663; 86664; 86665; 96365; J0485

== ENCOUNTER 2023-12-06 11:59 | Outpatient (RCR) | payer MEDICARE, OTHER, SELFPAY ==
[2023-12-06 13:00] VITALS: BP 91/51
[2023-12-06] MEDS: [UNRECOGNIZED DRUG - OTHER] 100 MG IV (13:30)
[2023-12-06 14:10] VITALS: BP 120/59
[2023-12-06 14:36] LABS: % Basophils 0.6 % (0-2); % Eosinophils 1.1 % (0-6); % Immature Granulocytes 1.5 % (0-0.5); % Lymphocytes 10.4 % (20.5-51.1); % Monocytes 7.3 % (1.7-9.3); % Neutrophils 79.1 % (42.2-75.2); Absolute Basophils 0.1 10^3/uL (0-0.2); Absolute Eosinophils 0.1 10^3/uL (0-0.7); Absolute Immature Granulocytes 0.2 10^3/uL (0-0.05); Absolute Lymphocytes 1.1 10^3/uL (1.2-3.4); Absolute Monocytes 0.8 10^3/uL (0.1-0.6); Absolute Neutrophils 8.2 10^3/uL (1.4-6.5); Hemoglobin 14.7 g/dL (13.0-18.0); Mean Corpuscular Hgb 30.9 pg (27.0-31.0); Mean Corpuscular Volume 88.4 fL (80.0-94.0); Mean Platelet Volume 10.3 fL (7.4-10.4); Nucleated Red Blood Cells % 0 % (-); Platelet Count 143 10^3/uL (130-400); Red Blood Cell Count 4.75 10^6/uL (4.70-6.10); Red Cell Dist. Width 13.1 % (11.5-14.5); White Blood Cell Count 10.3 10^3/uL (4.8-10.8)
[2023-12-06 15:22] LABS: Blood Urea Nitrogen 16 mg/dl (9-20); Calcium 11.1 mg/dl (8.4-10.2); Carbon Dioxide 24 mmol/L (22-30); Chloride 105 mmol/L (98-107); Glucose 304 mg/dl (70-99); Potassium 4.3 mmol/L (3.5-5.1); Sodium 137 mmol/L (135-145); eGFR > 60.00
== END 2023-12-25 23:59 | disposition home or self-care (01) ==
LOC: OID 11:59
PROVIDERS: ATTENDING PHYSICIAN Internal Medicine Nephrology; FAMILY PHYSICIAN Internal Medicine
DX: Z48.22 Encounter for aftercare following kidney transplant (principal); Z94.0 Kidney transplant status; D84.81 Immunodeficiency due to conditions classified elsewhere
CPT/HCPCS: 36415; 80048; 85025; 96365; J0485

== ENCOUNTER 2024-01-03 13:08 | Outpatient (RCR) | payer MEDICARE, BC, SELFPAY ==
[2024-01-03 13:15] VITALS: BP 156/79
[2024-01-03 13:31] LABS: % Basophils 0.3 % (0-2); % Eosinophils 0.3 % (0-6); % Lymphocytes 8.2 % (20.5-51.1); % Neutrophils 81.2 % (42.2-75.2); Absolute Immature Granulocytes 0.2 10^3/uL (0-0.05); Absolute Lymphocytes 0.9 10^3/uL (1.2-3.4); Absolute Monocytes 0.9 10^3/uL (0.1-0.6); Hematocrit 44.3 % (39.0-52.0); Hemoglobin 15.2 g/dL (13.0-18.0); Mean Corp Hgb Conc. 34.3 g/dL (33.0-37.0); Mean Corpuscular Volume 90.2 fL (80.0-94.0); Mean Platelet Volume 9.9 fL (7.4-10.4); Platelet Count 154 10^3/uL (130-400); Red Blood Cell Count 4.91 10^6/uL (4.70-6.10); Red Cell Dist. Width 13.1 % (11.5-14.5); White Blood Cell Count 11.1 10^3/uL (4.8-10.8)
[2024-01-03] MEDS: [UNRECOGNIZED DRUG - OTHER] 100 MG IV (13:43)
[2024-01-03 14:39] LABS: Blood Urea Nitrogen 22 mg/dl (9-20); Calcium 11.2 mg/dl (8.4-10.2); Carbon Dioxide 23 mmol/L (22-30); Chloride 105 mmol/L (98-107); Glucose 277 mg/dl (70-99); Potassium 4.8 mmol/L (3.5-5.1); Sodium 137 mmol/L (135-145); eGFR > 60.00
== END 2024-01-04 13:38 | disposition home or self-care (01) ==
LOC: OID 13:08
PROVIDERS: ATTENDING PHYSICIAN Internal Medicine Nephrology; FAMILY PHYSICIAN Internal Medicine
DX: Z94.0 Kidney transplant status (principal); E11.22 Type 2 diabetes mellitus with diabetic chronic kidney disease; N18.6 End stage renal disease
CPT/HCPCS: 36415; 80048; 85025; 96365; J0485

== ENCOUNTER 2024-02-07 13:40 | Outpatient (RCR) | payer MEDICARE, BC, SELFPAY ==
[2024-02-07 13:55] VITALS: BP 122/68
[2024-02-07] MEDS: [UNRECOGNIZED DRUG - OTHER] 100 MG IV (14:18)
[2024-02-07 14:51] VITALS: BP 122/64
== END 2024-02-08 09:07 | disposition home or self-care (01) ==
LOC: OID 13:40
PROVIDERS: ATTENDING PHYSICIAN Internal Medicine Nephrology; FAMILY PHYSICIAN Internal Medicine
DX: E11.22 Type 2 diabetes mellitus with diabetic chronic kidney disease (principal); Z94.0 Kidney transplant status (principal); N18.5 Chronic kidney disease, stage 5
CPT/HCPCS: 96365; J0485

== ENCOUNTER 2024-03-06 14:01 | Outpatient (RCR) | payer MEDICARE, BC, SELFPAY ==
[2024-03-06 14:22] VITALS: BP 115/72
[2024-03-06] MEDS: [UNRECOGNIZED DRUG - OTHER] 100 MG IV (14:42)
== END 2024-03-26 23:59 | disposition home or self-care (01) ==
LOC: OID 14:01
PROVIDERS: ATTENDING PHYSICIAN Internal Medicine Nephrology; FAMILY PHYSICIAN Internal Medicine
DX: Z94.0 Kidney transplant status (principal)
CPT/HCPCS: 96365; J0485

== ENCOUNTER 2024-08-01 06:28 | Day surgery (SDC) | payer MEDICARE, BC, SELFPAY ==
[2024-08-01 09:56] LABS: Glucose - Point of Care 193 mg/dl (70-99)
[2024-08-01 10:18] VITALS: BP 91/53
[2024-08-01 10:22] VITALS: BMI 21.5
[2024-08-01] MEDS: MYDRIACYL 1 DROP OPHTH (10:47)
[2024-08-01] MEDS: CYCLOGYL 1% EYE DROPS 1 DROP OPHTH (10:47)
[2024-08-01] MEDS: AKTEN OPHTHALMIC GEL 1 ML OPHTH (10:48)
[2024-08-01] MEDS: ALCAINE 0.5% EYE DROPS 1 DROP OPHTH (10:48)
[2024-08-01] MEDS: PRED FORTE 1% EYE DROPS 1 DROP OPHTH (10:48)
[2024-08-01] MEDS: POLYTRIM OPHTHALMIC SOLUTION 1 DROP OPHTH (10:48)
[2024-08-01] MEDS: NEO-SYNEPHRINE 2.5% OPH SOL. 1 DROP OPHTH (10:48)
[2024-08-01] MEDS: ACUVAIL 1 DROPS OPHTH (10:49)
[2024-08-01 11:44] VITALS: BP 105/58
[2024-08-01 13:27] VITALS: BP 108/57
== END 2024-08-01 15:15 | disposition home or self-care (01) ==
LOC: SDS 06:28
PROVIDERS: ATTENDING PHYSICIAN Ophthalmology
PROC: 08RK3JZ Replacement of Left Lens with Synthetic Substitute, Percutaneous Approach (ICD-10-PCS; 2024-08-01)
DX: H25.812 Combined forms of age-related cataract, left eye (principal)
CPT/HCPCS: 66984; 82962; V2632

== ENCOUNTER 2024-08-15 06:29 | Day surgery (SDC) | payer MEDICARE, BC, SELFPAY ==
[2024-08-15 06:31] VITALS: BMI 21.5
[2024-08-15 06:32] VITALS: BMI 21.5
[2024-08-15 06:36] VITALS: BP 164/78
[2024-08-15 06:44] LABS: Glucose - Point of Care 186 mg/dl (70-99)
[2024-08-15] MEDS: ALCAINE 0.5% EYE DROPS 1 DROP OPHTH (06:49)
[2024-08-15] MEDS: PRED FORTE 1% EYE DROPS 1 DROP OPHTH (06:49)
[2024-08-15] MEDS: POLYTRIM OPHTHALMIC SOLUTION 1 DROP OPHTH (06:50)
[2024-08-15] MEDS: CYCLOGYL 1% EYE DROPS 1 DROP OPHTH (06:50)
[2024-08-15] MEDS: NEO-SYNEPHRINE 2.5% OPH SOL. 1 DROP OPHTH (06:50)
[2024-08-15] MEDS: MYDRIACYL 1 DROP OPHTH (06:50)
[2024-08-15] MEDS: ACUVAIL 1 DROPS OPHTH (06:51)
[2024-08-15] MEDS: AKTEN OPHTHALMIC GEL 1 ML OPHTH (06:51)
[2024-08-15 08:30] VITALS: BP 128/72
[2024-08-15 08:52] LABS: Glucose - Point of Care 155 mg/dl (70-99)
== END 2024-08-15 09:30 | disposition home or self-care (01) ==
LOC: SDS 06:29
PROVIDERS: ATTENDING PHYSICIAN Ophthalmology
PROC: 08RJ3JZ Replacement of Right Lens with Synthetic Substitute, Percutaneous Approach (ICD-10-PCS; 2024-08-15)
DX: H25.811 Combined forms of age-related cataract, right eye (principal)
CPT/HCPCS: 66984; 82962